=== PATIENT | female | born 1965 | race African-American/Black ===

== ENCOUNTER → 2016-07-25 | Outpatient (CLI) | payer MEDICAID ==
[2014-06-08 12:59] VITALS: BP 139/94
[2016-07-25 15:10] LABS: BASOPHILS # (AUTO) 0.1 X10^3/uL (0.0-0.1); BASOPHILS % (AUTO) 1.5 % (0.2-1.0); EOSINOPHILS # (AUTO) 0.1 x10^3/uL (0.0-0.2); EOSINOPHILS % (AUTO) 1.9 % (0.9-2.9); HEMATOCRIT 42.9 % (36.0-47.0); HEMOGLOBIN 14.1 g/dL (12.0-16.0); LYMPHOCYTES # (AUTO) 2.3 X10^3/uL (1.3-2.9); LYMPHOCYTES % (AUTO) 44.1 % (21.0-51.0); MEAN CORPUSCULAR HEMOGLOBIN 29.1 pg (27.0-34.0); MEAN CORPUSCULAR HGB CONC 32.8 g/dL (33.0-35.0); MEAN CORPUSCULAR VOLUME 88.7 fL (80.0-100.0); MEAN PLATELET VOLUME 8.5 fL (7.4-11.0); MONOCYTES # (AUTO) 0.4 x10^3/uL (0.3-0.8); MONOCYTES % (AUTO) 6.8 % (0.0-13.0); NEUTROPHILS # (AUTO) 2.4 x10^3/uL (2.2-4.8); NEUTROPHILS % (AUTO) 45.7 % (42.0-75.0); PLATELET COUNT 312 X10^3/uL (150.0-450.0); RED BLOOD COUNT 4.83 X10^6/uL (3.5-5.4); RED CELL DISTRIBUTION WIDTH 13.5 % (11.6-16.5); WHITE BLOOD COUNT 5.3 X10^3/uL (3.6-10.0)
[2016-07-25 15:25] LABS: HEMOGLOBIN A1C 6.1 % (4.5-6.2)
[2016-07-25 15:42] LABS: ALANINE AMINOTRANSFERASE 30 Units/L (12-78); ALBUMIN 3.8 g/dL (3.4-5.0); ALKALINE PHOSPHATASE 144 Units/L (46-116); ASPARTATE AMINO TRANSFERASE 24 Units/L (15-37); BLOOD UREA NITROGEN 8 mg/dL (7-18); CALCIUM 9.1 mg/dL (8.5-10.1); CARBON DIOXIDE 32.1 mmol/L (21-32); CHLORIDE 104 mmol/L (98-107); CREATININE 1.23 mg/dL (0.55-1.02); GLUCOSE 100 mg/dL (65-99); SODIUM 142 mmol/L (136-145); TOTAL PROTEIN 8.6 g/dL (6.4-8.2); eGFR BLACK RACES 59 (>60); eGFR NON BLACK RACES 49 (>60)
[2016-07-25 15:45] LABS: HCG,QUANTITATIVE 2 mIU/mL (0-6)
== END ==
LOC: LAB 14:49
PROVIDERS: ATTEND Podiatrist
DX: Z01.812 Encounter for preprocedural laboratory examination (principal); Z01.810 Encounter for preprocedural cardiovascular examination; Z01.811 Encounter for preprocedural respiratory examination
CPT/HCPCS: 36415; 80053; 83036; 84702; 85025; 93005; 93010

== ENCOUNTER → 2016-08-15 | Outpatient (CLI) | payer MEDICAID ==
[2014-06-08 12:59] VITALS: BP 139/94
--- NOTE | 2016-08-15 08:31 | RAD ---
HISTORY: Preoperative exam for foot surgery Study: Two views of the chest Comparison: May 22, 2013 Findings: The patient is rotated.. The cardiac silhouette is unremarkable. The lungs are clear without focal infiltrate or effusion. The aortic knob is partially calcified. IMPRESSION: 1. No acute cardiopulmonary disease. Reported By:
[2016-08-15 08:40] LABS: BASOPHILS # (AUTO) 0.1 X10^3/uL (0.0-0.1); EOSINOPHILS # (AUTO) 0.2 x10^3/uL (0.0-0.2); EOSINOPHILS % (AUTO) 3.3 % (0.9-2.9); HEMATOCRIT 38.7 % (36.0-47.0); HEMOGLOBIN 12.7 g/dL (12.0-16.0); LYMPHOCYTES # (AUTO) 2.8 X10^3/uL (1.3-2.9); MEAN CORPUSCULAR HGB CONC 32.7 g/dL (33.0-35.0); MEAN CORPUSCULAR VOLUME 88.5 fL (80.0-100.0); MEAN PLATELET VOLUME 8.8 fL (7.4-11.0); MONOCYTES # (AUTO) 0.6 x10^3/uL (0.3-0.8); MONOCYTES % (AUTO) 8.9 % (0.0-13.0); NEUTROPHILS # (AUTO) 2.7 x10^3/uL (2.2-4.8); NEUTROPHILS % (AUTO) 42.8 % (42.0-75.0); PLATELET COUNT 278 X10^3/uL (150.0-450.0); RED BLOOD COUNT 4.37 X10^6/uL (3.5-5.4); RED CELL DISTRIBUTION WIDTH 13.3 % (11.6-16.5); WHITE BLOOD COUNT 6.4 X10^3/uL (3.6-10.0)
[2016-08-15 08:46] LABS: ALANINE AMINOTRANSFERASE 18 Units/L (12-78); ALBUMIN 3.7 g/dL (3.4-5.0); ALKALINE PHOSPHATASE 150 Units/L (46-116); ASPARTATE AMINO TRANSFERASE 17 Units/L (15-37); BLOOD UREA NITROGEN 13 mg/dL (7-18); CALCIUM 8.7 mg/dL (8.5-10.1); CARBON DIOXIDE 29.7 mmol/L (21-32); CHLORIDE 104 mmol/L (98-107); CREATININE 1.16 mg/dL (0.55-1.02); GLUCOSE 85 mg/dL (65-99); SODIUM 142 mmol/L (136-145); TOTAL PROTEIN 8.1 g/dL (6.4-8.2); eGFR BLACK RACES > 60 (>60); eGFR NON BLACK RACES 52 (>60)
[2016-08-15 09:19] LABS: SERUM PREGNANCY TEST, QUAL NEGATIVE <10 mIU/mL
== END ==
LOC: LAB 07:56
PROVIDERS: ATTEND Podiatrist
DX: Z01.812 Encounter for preprocedural laboratory examination (principal); Z01.810 Encounter for preprocedural cardiovascular examination; B35.1 Tinea unguium
CPT/HCPCS: 36415; 71020; 80053; 83036; 84703; 85025

== ENCOUNTER → 2016-09-07 | Outpatient (CLI) | payer MEDICAID ==
[2014-06-08 12:59] VITALS: BP 139/94
[2016-09-07 08:21] LABS: BLOOD UREA NITROGEN 10 mg/dL (7-18); CALCIUM 8.9 mg/dL (8.5-10.1); CARBON DIOXIDE 28.7 mmol/L (21-32); CHLORIDE 104 mmol/L (98-107); CREATININE 1.06 mg/dL (0.55-1.02); GLUCOSE 92 mg/dL (65-99); SODIUM 143 mmol/L (136-145); eGFR BLACK RACES > 60 (>60); eGFR NON BLACK RACES 58 (>60)
== END ==
LOC: LAB 07:56
PROVIDERS: ATTEND Podiatrist
DX: Z01.812 Encounter for preprocedural laboratory examination (principal); Z01.810 Encounter for preprocedural cardiovascular examination; Z01.811 Encounter for preprocedural respiratory examination; B35.1 Tinea unguium
CPT/HCPCS: 36415; 80048

== ENCOUNTER → 2016-10-12 | Outpatient (CLI) | payer MEDICAID ==
[2014-06-08 12:59] VITALS: BP 139/94
[2016-10-12 10:18] LABS: BASOPHILS # (AUTO) 0.1 X10^3/uL (0.0-0.1); BASOPHILS % (AUTO) 1.4 % (0.2-1.0); EOSINOPHILS # (AUTO) 0.2 x10^3/uL (0.0-0.2); EOSINOPHILS % (AUTO) 3.5 % (0.9-2.9); HEMOGLOBIN 13.8 g/dL (12.0-16.0); LYMPHOCYTES # (AUTO) 2.8 X10^3/uL (1.3-2.9); MEAN CORPUSCULAR HEMOGLOBIN 29.3 pg (27.0-34.0); MEAN CORPUSCULAR HGB CONC 33.6 g/dL (33.0-35.0); MEAN CORPUSCULAR VOLUME 87.3 fL (80.0-100.0); MEAN PLATELET VOLUME 8.2 fL (7.4-11.0); MONOCYTES # (AUTO) 0.6 x10^3/uL (0.3-0.8); MONOCYTES % (AUTO) 9.8 % (0.0-13.0); NEUTROPHILS # (AUTO) 2.4 x10^3/uL (2.2-4.8); NEUTROPHILS % (AUTO) 39.3 % (42.0-75.0); PLATELET COUNT 302 X10^3/uL (150.0-450.0); RED BLOOD COUNT 4.69 X10^6/uL (3.5-5.4); RED CELL DISTRIBUTION WIDTH 13.8 % (11.6-16.5)
[2016-10-12 10:35] LABS: SERUM PREGNANCY TEST, QUAL NEGATIVE <10 mIU/mL
[2016-10-12 10:39] LABS: ALANINE AMINOTRANSFERASE 24 Units/L (12-78); ALBUMIN 3.7 g/dL (3.4-5.0); ALKALINE PHOSPHATASE 155 Units/L (46-116); ASPARTATE AMINO TRANSFERASE 23 Units/L (15-37); BLOOD UREA NITROGEN 19 mg/dL (7-18); CALCIUM 8.7 mg/dL (8.5-10.1); CARBON DIOXIDE 27.1 mmol/L (21-32); CHLORIDE 107 mmol/L (98-107); CREATININE 1.05 mg/dL (0.55-1.02); GLUCOSE 97 mg/dL (65-99); SODIUM 141 mmol/L (136-145); TOTAL PROTEIN 8.2 g/dL (6.4-8.2); eGFR BLACK RACES > 60 (>60); eGFR NON BLACK RACES 58 (>60)
== END ==
LOC: LAB 09:58
PROVIDERS: ATTEND Podiatrist
DX: Z01.818 Encounter for other preprocedural examination (principal); Z01.810 Encounter for preprocedural cardiovascular examination; Z01.811 Encounter for preprocedural respiratory examination; B35.1 Tinea unguium
CPT/HCPCS: 36415; 80053; 83036; 84703; 85025

== ENCOUNTER 2017-02-20 18:07 | Emergency (ER) | payer MEDICAID ==
[2017-02-20 18:20] VITALS: BMI 30.1
[2017-02-20] MEDS ORDERED: NS 1000 ML 1,000 ML IV ONE (18:33)
--- NOTE | 2017-02-20 18:34 | DR.SEIZA ---
HPI - Time Seen Time seen: 18:20 - Complaints Chief Complaint Doctors Comments: Patient observes having seizure by daughter, she had jerking of upper and lowr extremities. Duration of seizure sever minutes approximately and was post ictal for about fifteen minutes. She has had seizures since childhood. She takes Depakote 250mg Chief Complaint:: EMS TONED OUT TO PT HAVING SEIZURE AND UPON ARRIVAL PT WAS COMBATIVE AND SHE WOULD NOT LET EMS GET AN IV OR VS PTS DAUGHTER SAID IT LOOKED LIKE A SEIZURE TO HER AND PT HAD THEM IN HER CHILDHOOD, Self Treatment fo Chief Complaint: PTS DAUGHTER GIVING DR. LYNN HX OF WITNESSING CONVULSING OF HER MOTHER THAT LASTED ABOUT 5-7 MIN,,, PT HAD NO LOSS OF BLADDER OR BOWEL. - Source History Provided: Patient, Family Member, EMS - Mode of Arrival Mode of Arrival: EMS - Timing Onset of Chief Complaint: 02/20/17 PMH - PMH Past Medical History: Yes Past Medical History: Hypertension Past Surgical History: Yes Surgical History: - Family History History of Family Medical Conditions: Yes Family Medical History: Diabetes Mellitus, Cancer, Coronary Artery Disease, Heart Failure, Hypertension - Social History Does patient currently use any type of tobacco product: No Have you used tobacco products in the last 12 months: No Type of Tobacco Use: None Does any household member use tobacco: No Alcohol Use: None Do you use any recreational Drugs:: No Lives With: Family Lives Where: Home - infectious screening In the last 2 months have you had wt loss of >10#?: NO Have you had fever, night sweats or hemotysis?: No Have you traveled outside the country in the last 6 months?: No ROS - Review of Systems Eyes: No Symptoms Reported ENTM: No Symptoms Reported Respiratoy: No Symptoms Reported Cardiovascular: No Symptoms Reported Gastrointestinal/Abdominal: No Symptoms Reported Genitourinary: No Symptoms Reported Neurological: No Symptoms Reported Musculoskeletal: No Symptoms Reported Integumentary: No Symptoms Reported Hematologic/Lymphatic: No Symptoms Reported Endocrine: No Symptoms Reported Psychiatric: No Symptoms Reported All Other Systems: Reviewed and Negative PE - Vital Signs Vitals: Temperature 98.6 F Pulse Rate 94 Respiratory Rate 22 Blood Pressure 121/76 O2 Sat by Pulse Oximetry 96 - General Limitations: No Limitations General Appearance: Alert, In No Apparent Distress - Head Head Exam: Normal Inspection, Atraumatic Head Exam Physical: negative: Laceration, Abrasion, Contusion, Hematoma, Raccoon Eyes, Holm's Sign, Tenderness of Temporal Artery, CSF Rhinorrhea, CSF Otorrhea, Other - Eyes Eye exam: Normal Appearance Eyelids: Normal Inspection: Bilateral Pupils: Regular, Round: Bilateral Sclera/Conjunctival: Normal Inspection: Bilateral Anterior Chamber: Normal Inspection: Bilateral - ENT ENT Exam: Normal Exam, Normal Oropharynx Mouth Exam: Normal Inspection - Neck Neck Exam: Normal Inspection, Full ROM - Chest Chest Inspection: Normal Inspection, Symmetric Chest Wall Rise - Respiratory Respiratory Exam: Normal Lung Sounds Bilat Respiratory Exam: Bilateral Clear to Auscultation - Cardiovascular Cardiovascular Exam: Regular Rate, Normal Rhythm - Abdominal Exam Abdominal Exam: Normal Inspection, Normal Bowel Sounds Abdominal Tenderness: negative: RUQ, RLQ, LUQ, LLQ, Epigastrium, Suprapubic, Diffuse, Mild, Moderate, Severe, Other - Extremities Extremities Exam: Normal Inspection, Full ROM - Back Back Exam: Normal Inspection - Neurologic Neurological Exam: Alert, Oriented X3, CN II-XII Intact Speech: Fluid Speech Cranial Nerve Exam: EOM Function (II, III, IV, ): Normal Cerebellar Function: Finger to Nose: Normal Cerebellar Function: Normal Gait Motor Strength - LUE: 2/5 Motor Strength - RUE: 3/5 Motor Strength - LLE: 3/5 Sensory Exam Lower Extremity: Light Touch: Normal DTR: achilles tendon (L): 2+ - Psychiatric Psychiatric Exam: Normal Affect, Normal Mood - Skin Skin Exam: Warm, Dry, Intact Course - Reevaluation 1st: Improved - Education/Counseling Education/Counseling: Patient Educated On: Treatment, Diagnosis, Needs for Follow Up ROR - Labs Reviewed Laboratory Results Reviewed?: Yes (valporic acid level 35.6mg/dl (50-100)) Result Diagrams: 02/20/17 18:42 02/20/17 18:42 Laboratory: WBC 5.8 X10^3/uL (3.6-10.0) 02/20/17 18:42 RBC 4.35 X10^6/uL (3.5-5.4) 02/20/17 18:42 Hgb 12.7 g/dL (12.0-16.0) 02/20/17 18:42 Hct 37.9 % (36.0-47.0) 02/20/17 18:42 MCV 87.0 fL (80.0-100.0) 02/20/17 18:42 MCH 29.1 pg (27.0-34.0) 02/20/17 18:42 MCHC 33.5 g/dL (33.0-35.0) 02/20/17 18:42 RDW 13.8 % (11.6-16.5) 02/20/17 18:42 Plt Count 326 X10^3/uL (150.0-450.0) 02/20/17 18:42 MPV 8.0 fL (7.4-11.0) 02/20/17 18:42 Neut % 36.4 % (42.0-75.0) L 02/20/17 18:42 Lymph % 54.2 % (21.0-51.0) H 02/20/17 18:42 [place] % 7.3 % (0.0-13.0) 02/20/17 18:42 Eos % 1.4 % (0.9-2.9) 02/20/17 18:42 Baso % 0.7 % (0.2-1.0) 02/20/17 18:42 Neut # 2.1 x10^3/uL (2.2-4.8) L 02/20/17 18:42 Lymph # 3.2 X10^3/uL (1.3-2.9) H 02/20/17 18:42 [place] # 0.4 x10^3/uL (0.3-0.8) 02/20/17 18:42 Eos # 0.1 x10^3/uL (0.0-0.2) 02/20/17 18:42 Baso # 0.0 X10^3/uL (0.0-0.1) 02/20/17 18:42 Absolute Nucleated RBC 0.0 /100WBC 02/20/17 18:42 Sodium 146 mmol/L (136-145) H 02/20/17 18:42 Corrected Sodium TNP 02/20/17 18:42 Potassium 3.2 mmol/L (3.5-5.1) L 02/20/17 18:42 Chloride 110 mmol/L (98-107) H 02/20/17 18:42 Carbon Dioxide 27.6 mmol/L (21-32) 02/20/17 18:42 BUN 12 mg/dL (7-18) 02/20/17 18:42 Creatinine 1.21 mg/dL (0.55-1.02) H 02/20/17 18:42 Est GFR (MDRD) Af Amer > 60 (>60) 02/20/17 18:42 Est GFR (MDRD) Non-Af 50 (>60) L 02/20/17 18:42 Glucose 94 mg/dL (65-99) 02/20/17 18:42 Calcium 8.3 mg/dL (8.5-10.1) L 02/20/17 18:42 Corrected Calcium 9.0 mg/dL (8.5-10.1) 02/20/17 18:42 Total Bilirubin < 0.10 mg/dL (0.2-1.0) L 02/20/17 18:42 AST 21 Units/L (15-37) 02/20/17 18:42 ALT 25 Units/L (12-78) 02/20/17 18:42 Alkaline Phosphatase 144 Units/L (46-116) H 02/20/17 18:42 Total Protein 7.3 g/dL (6.4-8.2) 02/20/17 18:42 Albumin 3.1 g/dL (3.4-5.0) L 02/20/17 18:42 Globulin 4.2 g/dL (2.5-4.5) 02/20/17 18:42 Albumin/Globulin Ratio 0.7 Ratio (1.1-2.1) L 02/20/17 18:42 Valproic Acid 35.8 ug/mL (50-100) L 02/20/17 18:42 - Diagnosis Discharge Problem: Seizure disorder, Hypokalemia, Seizure secondary to subtherapeutic anticonvulsant medication - Discharge Plan Condition: Stable - Follow ups/Referrals Follow ups/Referrals: NFD,None [Primary Care Provider] - 3 days - Instructions
[2017-02-20] MEDS ORDERED: NS 1000 ML 1,000 ML ONE (18:39)
[2017-02-20 18:46] LABS: BASOPHILS % (AUTO) 0.7 % (0.2-1.0); EOSINOPHILS # (AUTO) 0.1 x10^3/uL (0.0-0.2); EOSINOPHILS % (AUTO) 1.4 % (0.9-2.9); HEMATOCRIT 37.9 % (36.0-47.0); HEMOGLOBIN 12.7 g/dL (12.0-16.0); LYMPHOCYTES # (AUTO) 3.2 X10^3/uL (1.3-2.9); LYMPHOCYTES % (AUTO) 54.2 % (21.0-51.0); MEAN CORPUSCULAR HEMOGLOBIN 29.1 pg (27.0-34.0); MEAN CORPUSCULAR HGB CONC 33.5 g/dL (33.0-35.0); MONOCYTES # (AUTO) 0.4 x10^3/uL (0.3-0.8); MONOCYTES % (AUTO) 7.3 % (0.0-13.0); NEUTROPHILS # (AUTO) 2.1 x10^3/uL (2.2-4.8); NEUTROPHILS % (AUTO) 36.4 % (42.0-75.0); PLATELET COUNT 326 X10^3/uL (150.0-450.0); RED BLOOD COUNT 4.35 X10^6/uL (3.5-5.4); RED CELL DISTRIBUTION WIDTH 13.8 % (11.6-16.5); WHITE BLOOD COUNT 5.8 X10^3/uL (3.6-10.0)
[2017-02-20 18:58] LABS: ALANINE AMINOTRANSFERASE 25 Units/L (12-78); ALBUMIN 3.1 g/dL (3.4-5.0); ALKALINE PHOSPHATASE 144 Units/L (46-116); ASPARTATE AMINO TRANSFERASE 21 Units/L (15-37); BLOOD UREA NITROGEN 12 mg/dL (7-18); CALCIUM 8.3 mg/dL (8.5-10.1); CARBON DIOXIDE 27.6 mmol/L (21-32); CHLORIDE 110 mmol/L (98-107); CREATININE 1.21 mg/dL (0.55-1.02); SODIUM 146 mmol/L (136-145); TOTAL PROTEIN 7.3 g/dL (6.4-8.2); eGFR BLACK RACES > 60 (>60); eGFR NON BLACK RACES 50 (>60)
[2017-02-20] MEDS ORDERED: POTASSIUM CHLORIDE LIQ 20 MEQ UDC PO ONE (19:02)
[2017-02-20] MEDS ORDERED: POTASSIUM CHLORIDE LIQ 20 MEQ UDC ONE (19:04)
--- NOTE | 2017-02-20 22:36 | CT ---
CT head without contrast Indication: Seizure Technique: Axial images from the skullbase to the vertex without contrast. Coronal and sagittal refor mats provided. Comparison: 05/22/2013 CT head Findings: There is no acute intracranial hemorrhage, mass or mass effect. No extra-axial fluid collec tion or abnormal area of hypoattenuation to suggest infarction seen. Ventricles and sulci are normal. Review of bone windows shows no osseous abnormality. Paranasal sinuses and mastoid air cells are troy ar. Impression: No acute intracranial abnormality. Reported By:
[2017-02-20] MEDS ORDERED: TORADOL 60 MG VIAL IM ONE (22:58)
[2017-02-20] MEDS ORDERED: TORADOL 60 MG VIAL ONE (23:00)
[2017-02-20] MEDS ORDERED: MOTRIN TAB 600 MG PO ONE ×2 (23:05→23:06)
[2017-02-21 00:05] LABS: CKMB % 0.9 % (<4); CREATINE KINASE 118 Units/L (26-192); CREATINE KINASE MB < 1.0 ng/mL (0-4.0); TROPONIN I < 0.02 ng/mL (0-1.5)
[2017-02-21 00:14] LABS: BILIRUBIN,URINE NEGATIVE (NEGATIVE); BLOOD/HEMOGLOBIN,URINE NEGATIVE (NEGATIVE); GLUCOSE, URINE NEGATIVE (NEGATIVE); KETONES,URINE NEGATIVE (NEGATIVE); LEUKOCYTE ESTERASE ,URINE NEGATIVE (NEGATIVE); NITRITES,URINE NEGATIVE (NEGATIVE); PROTEIN,URINE NEGATIVE (NEGATIVE); UROBILINOGEN,URINE NORMAL (NORMAL)
[2017-02-21 00:21] LABS: APPEARANCE,URINE CLEAR (CLEAR); BACTERIA,URINE NEGATIVE /HPF (NEGATIVE); COLOR,URINE YELLOW (YELLOW); RBC,URINE 0-3 /HPF (NEGATIVE); SQUAMOUS EPITHELIAL CELL,UR RARE /HPF (NEGATIVE)
[2017-02-21 01:06] VITALS: BP 140/82
== END 2017-02-21 01:04 | disposition home or self-care (01) ==
LOC: ER 18:10
DX: G40.909 Epilepsy, unspecified, not intractable, without status epilepticus (principal); E87.6 Hypokalemia
CPT/HCPCS: 36415; 70450; 80053; 80164; 81001; 82550; 82553; 84484; 85025; 93005; 93010; 96365; 99283; A4222; J1885

== ENCOUNTER 2017-09-15 10:10 | Emergency (ER) | payer MEDICAID ==
[2017-09-15 10:13] VITALS: BP 142/85; BMI 36.1
--- NOTE | 2017-09-15 10:38 | DR.EARACHE ---
HPI - Time Seen Time seen: 10:40 - PCP Primary Care Physician: ARIADNA - HPI Comment HPI Comment: PAIN WORSE THIS AM. HEARING DECREASE IN RIGHT EAR. NO FEVER. NO TRAUMA. - Complaint/Symptoms Chief Complaint Doctor Comments: EARACHE TIMES ONE DAY. Chief Complaint:: PATIENT STATED THAT HER EARS ARE HURTING. THEY STARTED ABOUT 5 AM DAY BEFORE YESTERDAY - Nurses notes reviewed Nurses Notes Review: Yes - Source History Provided: Patient - Mode of arrival Mode of Arrival: Ambulatory - Timing Onset of Chief Complaint: 09/14/17 Came on: Suddenly - Duration Duration: Constant Duration: Days - Location Location: Bilateral - Severity Severity: Moderate - Context Context: Spontaneously Developed - Associated signs and symptoms Associated signs and symptoms: Discharge PMH - PMH Past Medical History: Yes Past Medical History: Headaches, Hypertension Past Surgical History: Yes Surgical History: - Family History History of Family Medical Conditions: Yes Family Medical History: Diabetes Mellitus, Cancer, Coronary Artery Disease, Heart Failure, Hypertension - Social History Does patient currently use any type of tobacco product: No Have you used tobacco products in the last 12 months: No Type of Tobacco Use: None Does any household member use tobacco: No Alcohol Use: None Do you use any recreational Drugs:: No Lives With: Family Lives Where: Home - infectious screening In the last 2 months have you had wt loss of >10#?: NO Have you had fever, night sweats or hemotysis?: No Have you traveled outside the country in the last 6 months?: No Isolation: Standard ROS - Review of Systems Constitutional: negative: Chills, Fever, Weakness, Fatigue Eyes: No Symptoms Reported. negative: Eye Pain, Discharge ENTM: Ear Pain, Ear Discharge, Hearing Loss (DECREASE HEARING RIGHT EAR.) Respiratoy: No Symptoms Reported Cardiovascular: No Symptoms Reported Gastrointestinal/Abdominal: No Symptoms Reported Genitourinary: No Symptoms Reported Neurological: No Symptoms Reported Musculoskeletal: No Symptoms Reported Integumentary: No Symptoms Reported Hematologic/Lymphatic: No Symptoms Reported Endocrine: No Symptoms Reported All Other Systems: Reviewed and Negative PE - Vitals Vitals: Temperature 97.0 F Pulse Rate 78 Respiratory Rate 20 Blood Pressure [Left Arm] 140/82 Blood Pressure 142/85 O2 Sat by Pulse Oximetry 99 - General Limitations: No Limitations General Appearance: Alert - Head Head Exam: Normal Inspection - Eyes Eye exam: Normal Appearance - ENT ENT Exam: Normal Oropharynx External Ear Exam: Pain with Movement, External Tenderness (RIGHT EAR.) TM/Canal Exam: Right Canal Drainage, Bilateral Erythema, Bilateral Canal Tenderness Nasal Speculum Exam: Bilateral Normal Mouth Exam: Normal Inspection Teeth Exam: Normal Inspection Throat Exam: Normal Inspection - Neck Neck Exam Focused: Normal Inspection - Chest Chest Inspection: Symmetric Chest Wall Rise - Respiratory Respiratory Exam: Normal Lung Sounds Bilat Respiratory Exam: Bilateral Clear to Auscultation - Cardiovascular Cardiovascular Exam: Regular Rate, Normal Rhythm, Normal Heart Sounds - Abdominal Exam Abdominal Exam: Normal Bowel Sounds, Soft. negative: Tenderness - Extremities Extremities Exam: Normal Inspection - Back Back Exam: Normal Inspection - Neurological Neurological Exam: Alert, Oriented X3 - Psychiatric Psychiatric Exam: Normal Affect, Normal Mood - Skin Skin Exam: Normal Color MDM - Differential Diagnosis External Auditory Canal: Otitis externa Tympanic membrane: Otitis media Course - Treatment Treatment: SEE ORDERS. - Education/Counseling Education/Counseling: Patient, Education Educated On: Diagnosis, Needs for Follow Up - Diagnosis Discharge Problem: Otitis media Qualifiers: Otitis media type: suppurative Chronicity: acute Laterality: bilateral Recurrence: not specified as recurrent Spontaneous tympanic membrane rupture: without spontaneous rupture Qualified Code(s): H66.003 - Acute suppurative otitis media without spontaneous rupture of ear drum, bilateral - Discharge Plan Condition: Stable Prescriptions: Ibuprofen [MOTRIN TAB 600 MG *] 600 mg PO TID PRN #30 tab PRN Reason: Pain/Inflammation Sulfamethoxazole/Trimethoprim [Bactrim 400-80 mg] 1 tab PO Q12H #20 tab - Follow ups/Referrals Follow ups/Referrals: Massiel CRISTOBALc [Primary Care Provider] - 2 days JOANNA ARGUETA [REFERRING] - 09/16/17 - Instructions Instructions: Otitis Media, Adult, [id number] Additional Instructions: RETURN TO ED IF WORSE.
[2017-09-15] MEDS ORDERED: BACTRIM DS TAB PO ONE ×2 (11:14→11:16)
[2017-09-15] MEDS ORDERED: TORADOL TAB PO ONE ×2 (11:14→11:16)
== END 2017-09-15 11:22 | disposition home or self-care (01) ==
LOC: ER 10:15
DX: H66.003 Acute suppurative otitis media without spontaneous rupture of ear drum, bilateral (principal)
CPT/HCPCS: 99281; 99282